=== PATIENT | female | born 1970 | race Caucasian/White ===

== ENCOUNTER 2018-07-29 12:31 | Emergency (ER) | payer OTHER ==
--- NOTE | 2018-07-29 13:06 | EDPHY ---
H & P Time Seen by Provider: 07/29/18 13:05 HPI/ROS: Chief complaint. Abdominal pain HPI. 48-year-old female with upper abdominal pain for 2 days. She describes it as ulceration. Some pressure in the epigastrium. No radiation to the back. No radiation to chest. Denies chest pain or shortness of breath. Occasional palpitations. Nausea yesterday but no vomiting or diarrhea. No fever cough. Patient is concerned as that mom had an MO at age 46 that apparently began with upper abdominal pain. Patient thinks that she has had on off ulcer since she was a teenager. Not really worse with eating and not worse with exertion or breathing ROS 10 systems were reviewed and negative with the exception of the elements mentioned in the history of present illness Past Medical/Surgical History: Healthy Social History: Life partner, nonsmoker, no alcohol Smoking Status: Never smoked Physical Exam: General Appearance: Alert pleasant well-developed female mild distress vital signs stable Eyes: Pupils equal and round no pallor or injection. ENT, Mouth: Mucous membranes are moist. Respiratory: There are no retractions, lungs are clear to auscultation. Cardiovascular: Regular rate and rhythm. Gastrointestinal: Abdomen is soft with mild tenderness in the epigastrium. No right or left upper quadrant tenderness. Neurological: Awake and alert, sensory and motor exams grossly normal. Skin: Warm and dry, no rashes. Musculoskeletal: Neck is supple nontender. Extremities symmetrical, full range of motion. Psychiatric: Patient is oriented X 3, there is no agitation. Constitutional: Initial Vital Signs Temperature (C) 36.5 C 07/29/18 12:35 Heart Rate 77 07/29/18 12:35 Respiratory Rate 16 07/29/18 12:35 Blood Pressure 132/89 H 07/29/18 12:35 O2 Sat (%) 97 07/29/18 12:35 O2 Delivery Mode Room Air Allergies/Adverse Reactions: oxycodone Allergy (Verified 07/29/18 12:35) Home Medications: Medication Instructions Recorded Famotidine [Pepcid] 40 mg PO DAILY #7 tablet 07/29/18 Tums Ultra 07/29/18 Medical Decision Making - Diagnostics EKG Interpretation: EKG interpreted by me shows normal sinus rhythm normal interval and axis. QRS is normal there is no significant ST elevation or depression. No arrhythmia. The rate is 68 Imaging Results: Imaging Impressions Chest X-Ray 07/29/18 12:58 Impression: Normal chest x-ray. Chest x-ray interpreted by me is normal Procedures: IV normal saline, monitor ED Course/Re-evaluation: Re-evaluation at 3:15 p.m.. Patient and I discussed imaging and lab results. We discussed treatment plan including criteria for return importance of follow- up and further evaluation. She expresses understanding and agreement. She is encouraged to follow up with Cardiology Differential Diagnosis: Heart score is 0 for EKG, 0 for history, 1 for age, 1 for risk factor for mother having MO at age 48, troponin 0. Total 2 - Data Points Laboratory Results: Laboratory Results 07/29/18 13:00 07/29/18 13:04 07/29/18 07/29/18 07/29/18 13:12 13:04 13:00 WBC 4.66 10^3/uL 10^3/uL (3.80-9.50) RBC 4.78 10^6/uL 10^6/uL (4.18-5.33) Hgb 14.3 g/dL g/dL (12.6-16.3) Hct 42.0 % % (38.0-47.0) MCV 87.9 fL fL (81.5-99.8) MCH 29.9 pg pg (27.9-34.1) MCHC 34.0 g/dL g/dL (32.4-36.7) RDW 12.7 % % (11.5-15.2) Plt Count 203 10^3/uL 10^3/uL (150-400) MPV 11.1 fL fL (8.7-11.7) Neut % (Auto) 64.7 % % (39.3-74.2) Lymph % (Auto) 21.9 % % (15.0-45.0) [place] % (Auto) 8.4 % % (4.5-13.0) Eos % (Auto) 3.9 % % (0.6-7.6) Baso % (Auto) 0.9 % % (0.3-1.7) Nucleat RBC Rel Count 0.0 % % (0.0-0.2) Absolute Neuts (auto) 3.02 10^3/uL 10^3/uL (1.70-6.50) Absolute Lymphs (auto) 1.02 10^3/uL 10^3/uL (1.00-3.00) Absolute Monos (auto) 0.39 10^3/uL 10^3/uL (0.30-0.80) Absolute Eos (auto) 0.18 10^3/uL 10^3/uL (0.03-0.40) Absolute Basos (auto) 0.04 10^3/uL 10^3/uL (0.02-0.10) Absolute Nucleated RBC 0.00 10^3/uL 10^3/uL (0-0.01) Immature Gran % 0.2 % % (0.0-1.1) Immature Gran # 0.01 10^3/uL 10^3/uL (0.00-0.10) Sodium 138 mEq/L mEq/L (135-145) Potassium 4.1 mEq/L mEq/L (3.5-5.2) Chloride 104 mEq/L mEq/L (97-110) Carbon Dioxide 26 mEq/l mEq/l (22-31) Anion Gap 8 mEq/L mEq/L (6-14) BUN 13 mg/dL mg/dL (7-23) Creatinine 0.8 mg/dL mg/dL (0.6-1.0) Estimated GFR > 60 Glucose 105 mg/dL H mg/dL (70-100) Calcium 9.2 mg/dL mg/dL (8.5-10.4) POC Troponin I 0.00 ng/mL ng/mL (0.00-0.08) Lipase 132 IU/L IU/L (23-300) Point of Care Test Results: Chemistry 07/29/18 13:12 POC Troponin I 0.00 ng/mL ng/mL (0.00-0.08) Departure - Departure Disposition: Home, Routine, Self-Care Clinical Impression: Abdominal pain Condition: Good Instructions: Abdominal Pain (ED) Additional Instructions: Mylanta 2 tbsp twice daily. Pepcid daily for the next week to help heal stomach Return for worsening chest discomfort or trouble with Referrals: Sunni Hassan NP [Primary Care Provider] - As per Instructions Zach Willams MD [Medical Doctor] - 2-3 days, call for appt. Prescriptions: Famotidine [Pepcid] 40 mg PO DAILY #7 tablet
[2018-07-29 13:57] LABS: PLATELET COUNT 203 10^3/uL (150-400)
[2018-07-29 15:35] VITALS: BP 119/84
--- NOTE | 2018-07-29 16:09 | CPEKG ---
Test Reason : OPEN Blood Pressure : / mmHG Vent. Rate : 068 BPM Atrial Rate : 068 BPM P-R Int : 178 ms QRS Dur : 089 ms QT Int : 423 ms P-R-T Axes : 064 027 030 degrees QTc Int : 450 ms Sinus rhythm Confirmed by Dontae Corrales ([id number]) on 07/29/2018 4:08:45 PM Referred By: PHYSICIAN ED Confirmed By:Dontae Corrales
== END 2018-07-29 15:34 | disposition home or self-care (01) ==
DX: R10.10 Upper abdominal pain, unspecified (principal)
CPT/HCPCS: 84484-ER